=== PATIENT | male | born 1945 | race African-American/Black ===

== ENCOUNTER 2019-05-21 11:29 | Outpatient (CLI) | payer OTHER ==
[~2019-05-21] VITALS: Ht 177.8 cm; Wt 121.6 kg
== END 2019-05-21 12:43 | disposition home or self-care (01) ==
LOC: OFIC 805 11:29
DX: M26.69 Other specified disorders of temporomandibular joint (principal); G44.89 Other headache syndrome; H93.12 Tinnitus, left ear
CPT/HCPCS: 99203; G0463

== ENCOUNTER 2019-06-12 09:41 | Outpatient (CLI) | payer OTHER | END 2019-06-12 11:53 | disposition home or self-care (01) | LOC: OFIC 805 09:41 | DX: M26.69 Other specified disorders of temporomandibular joint (principal); G44.89 Other headache syndrome; H93.12 Tinnitus, left ear | CPT/HCPCS: 99213; G0463 ==